=== PATIENT | female | born 1935 | race Caucasian/White ===

== ENCOUNTER 2016-04-24 13:09 | Inpatient (IN) | payer OTHER, MEDICARE ==
[2016-04-24] MEDS ORDERED: NS 2,000 ML IV ONE (14:14)
[2016-04-24 14:28] LABS: % IMMATURE GRANULYOCYTES 0.6 % (0.0-1.1); ABSOLUTE IMMATURE GRANULOCYTES 0.05 10^3/uL (0.00-0.10); ADD DIFF? NO; ADD MORPH? NO; ADD SCAN? NO; ATYPICAL LYMPHOCYTE FLAG 40 (0-99); FRAGMENT RBC FLAG 0 (0-99); HEMATOCRIT 38.9 % (38.0-47.0); HEMOGLOBIN 13.3 g/dL (12.6-16.3); LEFT SHIFT FLG 10 (0-99); LIPEMIA HEMOLYSIS FLAG 90 (0-99); MEAN CELL HEMOGLOBIN 31.7 pg (27.9-34.1); MEAN CELL HEMOGLOBIN CONCENTR. 34.2 g/dL (32.4-36.7); MEAN CELL VOLUME 92.8 fL (81.5-99.8); MEAN PLATELET VOLUME 9.6 fL (8.7-11.7); PLATELET CLUMPS FLAG 30 (0-99); PLATELET COUNT 295 10^3/uL (150-400); RED BLOOD CELL COUNT 4.19 10^6/uL (4.18-5.33); RED CELL DISTRIBUTION WIDTH 13.2 % (11.5-15.2)
[2016-04-24 14:34] LABS: ANION GAP 15 mEq/L (8-16); CALCIUM 9.1 mg/dL (8.5-10.4); CARBON DIOXIDE 23 mEq/l (22-31); CHLORIDE 99 mEq/L (97-110); CREATININE 0.6 mg/dL (0.6-1.0); GLOMERULAR FILTRATION RATE > 60; GLUCOSE 239 mg/dL (70-100); POTASSIUM 4.7 mEq/L (3.5-5.2); SODIUM 137 mEq/L (134-144)
--- NOTE | 2016-04-24 14:34 | EDPHY ---
H & P Time Seen by Provider: 04/24/16 14:33 HPI/ROS: Portions of this note were transcribed by a medical field representative. I personally performed the history, physical exam, and medical decision-making; and confirmed the accuracy of the information in the transcribed note. CHIEF COMPLAINT: I fell and could not get up; weakness HISTORY OF PRESENT ILLNESS: History is not patient and son. She has been having some back pain for the last week and half is some chronic issues with her right knee and right foot with an old tendon injury. She was doing well enough to go to [place] and have dinner and go to the [employer] on April 19. The day after Noe she started having a cough and increasing shortness of breath. She went to urgent care yesterday and was discharged with primary care follow-up and no change in her medications. Today she was feeling very weak she tried to get up and slumped onto the floor. She was so weak that she was unable to get up. She had diarrhea and continues to have cough weakness and fever. No urinary symptoms and only mildly short of breath. No injuries in the fall. REVIEW OF SYSTEMS: Eye: no change in vision ENT: no sore throat Cardiac: no chest pain or syncope Pulmonary: No hemoptysis. Abdomen: No vomiting or diarrhea. Musculoskeletal: Back pain as mentioned above. Skin: no rash Neuro: no headache Constitutional: HPI : no urinary symptoms A comprehensive 10 point review of systems is otherwise negative aside from elements mentioned in the history of present illness. PAST MEDICAL HISTORY: Includes hysterectomy and cholecystectomy, diabetes and hypertension, COPD. Social history: Former smoker, PCP Scarlett Hebert at [facility]. General Appearance: Alert and conversant, cooperative. Eyes: No scleral icterus. ENT, Mouth: Dry mucous membranes Respiratory: Bilateral rhonchi and expiratory wheezing, mildly tachypneic. Cardiovascular: Regular rate and rhythm. Gastrointestinal: Abdomen is soft and non tender. Neurological: Alert and oriented x3. Normally conversant. Face symmetric, able to move and have normal sensation in all extremities. Skin: Warm and dry, no rashes. No decubitus. Musculoskeletal: No peripheral edema and no joint swelling. Neck is supple without meningeal signs. No cervical thoracic or lumbar spine midline tenderness. Psychiatric: Not agitated. Emergency Department course/MDM: Patient presents with fever and probable infection. Plan for urinalysis and chest x-ray, DuoNeb and supplemental oxygen. Initial oxygen saturation per her nurse is 84% on room air. 125 mg IV Solu-Medrol. Patient does not meet sepsis criteria. Tachycardic, fever but no elevated WBC or tachypnea. 1510: I spoke with the radiologist, Dr. Baker and he interprets chest xray as left lower lobe pneumonia. I have ordered Levaquin 750 mg IV as the patient has penicillin and cephalosporin allergy, at this time. Patient will be admitted. I discussed the results with patient and her son. 1533: Patient is Flu positive. I have ordered 75 mg TamiFlu at this time. 1535: I spoke with the hospitalist, Dr. Porfirio Dawkins. She will admit the patient to Med/Surg for left lower lung pneumonia and influenza. 1615: Repeat venous lactic acid is measured at 1.4. Oxygen saturation is in the mid 90s on nasal cannula, and that was applied immediately on arrival for hypoxemia. Smoking Status: Former smoker Constitutional: Initial Vital Signs Temperature (C) 38.9 C H 04/24/16 13:51 Heart Rate 79 04/24/16 13:51 Respiratory Rate 18 04/24/16 13:51 Blood Pressure 124/92 H 04/24/16 13:51 O2 Sat (%) 95 04/24/16 13:51 O2 Delivery Mode Nasal Cannula O2 (L/minute) 5 Allergies/Adverse Reactions: aspirin Allergy (Verified 08/19/14 11:18) cephalexin monohydrate [From Keflex] Allergy (Verified 08/19/14 11:19) Penicillins Allergy (Verified 08/19/14 11:18) Sulfa (Sulfonamide Antibiotics) Allergy (Verified 08/19/14 11:19) Home Medications: Medication Instructions Recorded Atorvastatin Calcium [Lipitor 10 10 mg PO DAILY 08/19/14 mg (*)] Fluticasone/Salmeter 250/50Mcg 1 puffs IH BID 08/19/14 [Advair 250/50 (*)] Insulin Lispro [humALOG LISPRO] 4 unit SC TIDMEAL 08/19/14 Calcium Carbonate [Oyster Shell 500 mg PO DAILY 05/29/15 Calcium 500 mg (*)] Cholecalciferol Vit D3 [Vitamin D3 1,000 units PO BID 05/29/15 (*)] Clopidogrel Bisulfate [Plavix (*)] 75 mg PO DAILY 05/29/15 Fluticasone Nasal [Flonase Nasal 2 spray NASAL DAILY 05/29/15 [place]] Gabapentin [Neurontin 300 MG (*)] 300 mg PO HS 05/29/15 Insulin Glargine [Lantus 100 4 units SC HS 05/29/15 UNITS/ML (*)] Lisinopril/Hctz 10/12.5 mg 1 ea PO DAILY 05/29/15 [Zestoretic/Prinzide 10/12.5MG (*)] [place]-3 Fatty Acids [Fish Oil 1000 1,000 mg PO DAILY 05/29/15 mg (*)] Acetaminophen [Tylenol ES 500 mg 500 mg PO DAILY PRN 04/24/16 (*)] Albuterol Hfa Anes Only [Proair 2 puffs IH QID 04/24/16 Hfa Icu (*)] Ascorbic Acid [Vitamin C 250 mg 500 mg PO DAILY 04/24/16 (*)] Fexofenadine HCl [Deja Allergy] 180 mg PO DAILY 04/24/16 predniSONE 5 mg PO Q48H 04/24/16 traMADol [Ultram 50 mg (*)] 50 mg PO DAILY@17,22 04/24/16 Medical Decision Making - Diagnostics EKG Interpretation: The 12 lead EKG was interpreted by myself. Sinus rhythm, rate 69 with multiple atrial premature complexes and right bundle branch block. See hard copy and/ or "tracemaster" electronic copy for interpretation. Imaging: X-ray: Chest x-ray was obtained. I viewed the images myself on the PACS system. My interpretation of the images is: Left lower lobe infiltrate. The radiologist interpretation is agreeable with left lower lung pneumonia, Dr. Baker. I discussed the x-ray findings with the patient. X-ray: lumbar spine x-ray was obtained. I viewed the images myself on the PACS system. My interpretation of the images is: L4 on L5 spondylo listhesis with scoliosis, no different than previous lumbar x-ray, decreased disc space T12-L1 , worsening from previous x-ray. The radiologist interpretation is pending at this time. I discussed the x-ray findings with the patient. Differential Diagnosis: Differential diagnosis considered for weakness including but not limited to pneumonia, UTI, electrolyte abnormality, acute coronary syndrome, dehydration, and infectious causes. Critical Care Time: Critical care time spent by me, Dr. Briscoe, exclusively with the care of this patient was 35 minutes, exclusive of PA or LABORER [employer]ELINE time and exclusive of separate procedures. The organ system at risk was infectious, pulmonary and I ordered supplemental oxygen, IV fluids, antibiotics to include Levaquin 750 mg IV, oral antiviral medication, discussion with hospitalist physician; to stabilize the patient and prevent worsening of the patient's condition. - Data Points Laboratory Results: Laboratory Results 04/24/16 13:35 04/24/16 13:35 04/24/16 04/24/16 04/24/16 15:18 14:55 14:37 WBC RBC Hgb Hct MCV MCH MCHC RDW Plt Count MPV Neut % (Auto) Lymph % (Auto) [place] % (Auto) Eos % (Auto) Baso % (Auto) Nucleat RBC Rel Count Absolute Neuts (auto) Absolute Lymphs (auto) Absolute Monos (auto) Absolute Eos (auto) Absolute Basos (auto) Absolute Nucleated RBC Immature Gran % Immature Gran # PT INR APTT VBG Lactic Acid 3.1 H mmol/L (0.7-2.1) Sodium Potassium Chloride Carbon Dioxide Anion Gap BUN Creatinine Estimated GFR Glucose Calcium Total Bilirubin 1.4 mg/dL (0.1-1.4) Creatine Kinase 468 H IU/L (0-156) CK-MB (CK-2) Fraction 1.67 ng/mL (0-4.55) CK-MB (CK-2) % 0.3 % (0.0-4.0) Creatine Kinase Interp NEGATIVE (NEGATIVE) Specimen Hemolysis 317 Urine Color YELLOW Urine Appearance CLEAR Urine pH 5.0 (5.0-7.5) Ur Specific [place] 1.014 (1.002-1.030) Urine Protein 1+ H (NEGATIVE) Urine Ketones 1+ H (NEGATIVE) Urine Blood 2+ H (NEGATIVE) Urine Nitrate POSITIVE H (NEGATIVE) Urine Bilirubin NEGATIVE (NEGATIVE) Urine Urobilinogen NEGATIVE EU (0.2-1.0) Ur Leukocyte Esterase NEGATIVE (NEGATIVE) Urine RBC 1-3 /hpf (0-3) Urine WBC 1-3 /hpf (0-3) Ur Epithelial Cells TRACE /lpf (NONE-1+) Urine Bacteria TRACE H /hpf (NONE SEEN) Urine Mucus TRACE /lpf (NONE-1+) Ur Culture Indicated? INDICATED H (NI) Urine Glucose 3+ H (NEGATIVE) Influenza Typ A,B (DFA) POSITIVE FOR FLU A H (NEGATIVE) 04/24/16 13:35 WBC 8.76 10^3/uL (3.80-9.50) RBC 4.19 10^6/uL (4.18-5.33) Hgb 13.3 g/dL (12.6-16.3) Hct 38.9 % (38.0-47.0) MCV 92.8 fL (81.5-99.8) MCH 31.7 pg (27.9-34.1) MCHC 34.2 g/dL (32.4-36.7) RDW 13.2 % (11.5-15.2) Plt Count 295 10^3/uL (150-400) MPV 9.6 fL (8.7-11.7) Neut % (Auto) 84.6 H % (39.3-74.2) Lymph % (Auto) 8.9 L % (15.0-45.0) [place] % (Auto) 5.5 % (4.5-13.0) Eos % (Auto) 0.1 L % (0.6-7.6) Baso % (Auto) 0.3 % (0.3-1.7) Nucleat RBC Rel Count 0.0 % (0.0-0.2) Absolute Neuts (auto) 7.41 H 10^3/uL (1.70-6.50) Absolute Lymphs (auto) 0.78 L 10^3/uL (1.00-3.00) Absolute Monos (auto) 0.48 10^3/uL (0.30-0.80) Absolute Eos (auto) 0.01 L 10^3/uL (0.03-0.40) Absolute Basos (auto) 0.03 10^3/uL (0.02-0.10) Absolute Nucleated RBC 0.00 10^3/uL (0-0.01) Immature Gran % 0.6 % (0.0-1.1) Immature Gran # 0.05 10^3/uL (0.00-0.10) PT 14.1 SEC (12.0-15.0) INR 1.10 (0.83-1.16) APTT 23.7 SEC (23.0-38.0) VBG Lactic Acid Sodium 137 mEq/L (134-144) Potassium 4.7 mEq/L (3.5-5.2) Chloride 99 mEq/L (97-110) Carbon Dioxide 23 mEq/l (22-31) Anion Gap 15 mEq/L (8-16) BUN 15 mg/dL (7-23) Creatinine 0.6 mg/dL (0.6-1.0) Estimated GFR > 60 Glucose 239 H mg/dL (70-100) Calcium 9.1 mg/dL (8.5-10.4) Total Bilirubin Creatine Kinase CK-MB (CK-2) Fraction CK-MB (CK-2) % Creatine Kinase Interp Specimen Hemolysis Urine Color Urine Appearance Urine pH Ur Specific [place] Urine Protein Urine Ketones Urine Blood Urine Nitrate Urine Bilirubin Urine Urobilinogen Ur Leukocyte Esterase Urine RBC Urine WBC Ur Epithelial Cells Urine Bacteria Urine Mucus Ur Culture Indicated? Urine Glucose Influenza Typ A,B (DFA) Medications Given: Discontinued Medications Albuterol/Ipratropium (Duoneb) 3 ml IH EDNOW ONE Stop: 04/24/16 14:48 Last Admin: 04/24/16 15:50 Dose: 3 ml Sodium Chloride (Ns) 2,000 mls @ 0 mls/hr IV ONCE ONE PRN Reason: Wide Open Stop: 04/24/16 14:15 Last Admin: 04/24/16 14:20 Dose: 2,000 mls Levofloxacin/Dextrose (Levaquin 750 Mg (Premix)) 150 mls @ 100 mls/hr IV EDNOW ONE PRN Reason: Protocol Stop: 04/24/16 16:38 Last Admin: 04/24/16 15:50 Dose: 150 mls Methylprednisolone Sodium Succinate (Solu-Medrol) 125 mg IVP EDNOW ONE Stop: 04/24/16 15:10 Last Admin: 04/24/16 15:51 Dose: 125 mg Oseltamivir Phosphate (Tamiflu) 75 mg PO EDNOW ONE Stop: 04/24/16 15:36 Last Admin: 04/24/16 15:51 Dose: 75 mg Departure - Departure Disposition: [facility] Acute Clinical Impression: Influenza Pneumonia Qualifiers: Pneumonia type: due to unspecified organism Laterality: left Lung location: lower lobe of lung Qualifier Code: (J18.1) Lobar pneumonia, unspecified organism Condition: Serious Report Scribed for: Carlos Briscoe Report Scribed by: Dulce Lopez Date of Report: 04/24/16 Time of Report: 14:50
[2016-04-24] MEDS ORDERED: IPRATROPIUM/ALBUTEROL 3 ML DEYVIAL IH ONE (14:47)
[2016-04-24 15:04] LABS: INR 1.1 (0.83-1.16); PROTIME(PATIENT) 14.1 SEC (12.0-15.0)
[2016-04-24 15:05] LABS: APTT 23.7 SEC (23.0-38.0)
[2016-04-24 15:08] LABS: BILIRUBIN,TOTAL 1.4 mg/dL (0.1-1.4)
[2016-04-24] MEDS ORDERED: methylPREDNISolone SOD SUCC 125 MG/2 ML VIAL IVP ONE (15:09)
[2016-04-24 15:14] LABS: SPECIMEN HEMOLYSIS 317
[2016-04-24 15:26] LABS: COLOR YELLOW; LEUKOCYTE ESTERASE,URINE NEGATIVE (NEGATIVE); NITRITE,URINE POSITIVE (NEGATIVE)
--- NOTE | 2016-04-24 15:32 | CPEKG ---
Heart Rate: 69 RR Interval: 870 P-R Interval: 128 QRSD Interval: 132 QT Interval: 400 QTC Interval: 429 P [place]: 80 QRS [place]: 62 T Wave [place]: 1 EKG Severity - ABNORMAL ECG - EKG Impression: SINUS RHYTHM EKG Impression: MULTIPLE ATRIAL PREMATURE COMPLEXES EKG Impression: RIGHT BUNDLE BRANCH BLOCK Electronically Signed By: Carlos Briscoe 24-Apr-2016 15:44:49
[2016-04-24] MEDS ORDERED: OSELTAMIVIR PHOSPHATE 75 MG CAP PO ONE (15:35)
--- NOTE | 2016-04-24 15:41 | DX ---
Chest 2 views - April 24, 2016, at 1436 hours History: Cough, fever, dyspnea. Comparison: April 23, 2016. Findings: There is a new alveolar opacity in the left lower lobe, consistent with pneumonia. Linear scarring in the lingula. Borderline heart size. No pneumothorax. Impression: Left lower lobe pneumonia. Findings and recommendations discussed with Emergency Department physician, Dr. Carlos Briscoe. Final report concurs with initial preliminary interpretation.
[2016-04-24 15:53] LABS: CK-MB INTERPRETATION NEGATIVE (NEGATIVE); CREATINE KINASE-MB FRACTION 1.67 ng/mL (0-4.55)
[2016-04-24] MEDS ORDERED: PROMETHAZINE HCL 25 MG/ML VIAL IVP PRN (16:14)
[2016-04-24] MEDS ORDERED: ONDANSETRON DISINTEGRATING 4 MG TAB PO PRN (16:14)
[2016-04-24] MEDS ORDERED: ALBUTEROL 3 ML DEYVIAL IH PRN (16:14)
[2016-04-24] MEDS ORDERED: ONDANSETRON 4 MG/2 ML VIAL IVP PRN (16:14)
[2016-04-24] MEDS ORDERED: oxyCODONE IR 5 MG TAB PO PRN (16:14)
--- NOTE | 2016-04-24 16:31 | PDGENHP ---
History and Physical - Chief Complaint fever/sob - History of Present Illness 80 yo F with PMH of RAD/COPD, DM and CAD presenting with 2 days of fever, chills , sob and generalized aches and pains. She feels overall slowed down and weak as well. Today, she felt so weak that she essentially slumped to the floor and was unable to get herself back up. At that point she decided to come to the ER. She has been having worse upper back and neck pain as well. She has some chronic knee and foot pain that is stable. She has not been around anyone sick that she knows of. She has not had similar sxs in the past. History Information - Allergies/Home Medication List Allergies/Adverse Reactions: aspirin Allergy (Verified 08/19/14 11:18) cephalexin monohydrate [From Keflex] Allergy (Verified 08/19/14 11:19) Penicillins Allergy (Verified 08/19/14 11:18) Sulfa (Sulfonamide Antibiotics) Allergy (Verified 08/19/14 11:19) Home Medications: Atorvastatin Calcium [Lipitor 10 mg (*)] 10 mg PO DAILY 08/19/14 [Last Taken ] Fluticasone/Salmeter 250/50Mcg [Advair 250/50 (*)] 1 puffs IH BID 08/19/14 [ Last Taken 04/23/16] Insulin Lispro [humALOG LISPRO] 4 unit SC TIDMEAL 08/19/14 [Last Taken 04/23/16] Calcium Carbonate [Oyster Shell Calcium 500 mg (*)] 500 mg PO DAILY 05/29/15 [ Last Taken 04/23/16] Cholecalciferol Vit D3 [Vitamin D3 (*)] 1,000 units PO BID 05/29/15 [Last Taken 04/23/16] Clopidogrel Bisulfate [Plavix (*)] 75 mg PO DAILY 05/29/15 [Last Taken 04/23/16] Fluticasone Nasal [Flonase Nasal [place]] 2 spray NASAL DAILY 05/29/15 [Last Taken 04/23/16] Gabapentin [Neurontin 300 MG (*)] 300 mg PO HS 05/29/15 [Last Taken 04/23/16] Insulin Glargine [Lantus 100 UNITS/ML (*)] 4 units SC HS 05/29/15 [Last Taken ] Lisinopril/Hctz 10/12.5 mg [Zestoretic/Prinzide 10/12.5MG (*)] 1 ea PO DAILY 05/13 [Last Taken 04/23/16] [place]-3 Fatty Acids [Fish Oil 1000 mg (*)] 1,000 mg PO DAILY 05/29/15 [Last Taken 04/23/16] Acetaminophen [Tylenol ES 500 mg (*)] 500 mg PO DAILY PRN 04/24/16 [Last Taken 04/23/16 1000mg] Albuterol Hfa Anes Only [Proair Hfa Icu (*)] 2 puffs IH QID 04/24/16 [Last Taken Unknown] Ascorbic Acid [Vitamin C 250 mg (*)] 500 mg PO DAILY 04/24/16 [Last Taken ] Fexofenadine HCl [Deja Allergy] 180 mg PO DAILY 04/24/16 [Last Taken 04/23/16 ] predniSONE 5 mg PO Q48H 04/24/16 [Last Taken Unknown] traMADol [Ultram 50 mg (*)] 50 mg PO DAILY@17,22 04/24/16 [Last Taken Unknown] I have personally reviewed and updated: family history, medical history, social history, surgical history - Past Medical History asthma, coronary artery disease, COPD, diabetes type 2, hypertension - Surgical History Reports: cholecystectomy, hysterectomy - Family History Positive for: non-pertinent - Social History Smoking Status: Former smoker Alcohol Use: None Drug Use: None Additional social history: lives independently, son lives nearby and accompanies her here today Review of Systems ROS: 10pt was reviewed & negative except for what was stated in HPI & below Physical Exam Temp Pulse Resp BP Pulse Ox 38.9 C H 84 22 H 130/85 H 94 04/24/16 13:51 04/24/16 16:00 04/24/16 16:00 04/24/16 16:00 04/24/16 16:00 O2 (L/minute) 5 Constitutional: appears nourished, uncomfortable Eyes: PERRL, scleral injection Ears, Nose, Mouth, Throat: moist mucous membranes, hearing normal Cardiovascular: regular rate and rhythym, systolic murmur, No edema Respiratory: reduced air movement, inspiratory crackles, respiratory distress Gastrointestinal: normoactive bowel sounds, soft, non-tender abdomen Skin: warm, normal color Musculoskeletal: full muscle strength Neurologic: AAOx3, sensation intact bilaterally Lab Data & Imaging Review 04/24/16 13:35 04/24/16 13:35 WBC 8.76 10^3/uL (3.80-9.50) 04/24/16 13:35 RBC 4.19 10^6/uL (4.18-5.33) 04/24/16 13:35 Hgb 13.3 g/dL (12.6-16.3) 04/24/16 13:35 Hct 38.9 % (38.0-47.0) 04/24/16 13:35 MCV 92.8 fL (81.5-99.8) 04/24/16 13:35 MCH 31.7 pg (27.9-34.1) 04/24/16 13:35 MCHC 34.2 g/dL (32.4-36.7) 04/24/16 13:35 RDW 13.2 % (11.5-15.2) 04/24/16 13:35 Plt Count 295 10^3/uL (150-400) 04/24/16 13:35 MPV 9.6 fL (8.7-11.7) 04/24/16 13:35 Neut % (Auto) 84.6 % (39.3-74.2) H 04/24/16 13:35 Lymph % (Auto) 8.9 % (15.0-45.0) L 04/24/16 13:35 [place] % (Auto) 5.5 % (4.5-13.0) 04/24/16 13:35 Eos % (Auto) 0.1 % (0.6-7.6) L 04/24/16 13:35 Baso % (Auto) 0.3 % (0.3-1.7) 04/24/16 13:35 Nucleat RBC Rel Count 0.0 % (0.0-0.2) 04/24/16 13:35 Absolute Neuts (auto) 7.41 10^3/uL (1.70-6.50) H 04/24/16 13:35 Absolute Lymphs (auto) 0.78 10^3/uL (1.00-3.00) L 04/24/16 13:35 Absolute Monos (auto) 0.48 10^3/uL (0.30-0.80) 04/24/16 13:35 Absolute Eos (auto) 0.01 10^3/uL (0.03-0.40) L 04/24/16 13:35 Absolute Basos (auto) 0.03 10^3/uL (0.02-0.10) 04/24/16 13:35 Absolute Nucleated RBC 0.00 10^3/uL (0-0.01) 04/24/16 13:35 Immature Gran % 0.6 % (0.0-1.1) 04/24/16 13:35 Immature Gran # 0.05 10^3/uL (0.00-0.10) 04/24/16 13:35 PT 14.1 SEC (12.0-15.0) 04/24/16 13:35 INR 1.10 (0.83-1.16) 04/24/16 13:35 APTT 23.7 SEC (23.0-38.0) 04/24/16 13:35 VBG Lactic Acid 1.4 mmol/L (0.7-2.1) D 04/24/16 15:55 Sodium 137 mEq/L (134-144) 04/24/16 13:35 Potassium 4.7 mEq/L (3.5-5.2) 04/24/16 13:35 Chloride 99 mEq/L (97-110) 04/24/16 13:35 Carbon Dioxide 23 mEq/l (22-31) 04/24/16 13:35 Anion Gap 15 mEq/L (8-16) 04/24/16 13:35 BUN 15 mg/dL (7-23) 04/24/16 13:35 Creatinine 0.6 mg/dL (0.6-1.0) 04/24/16 13:35 Estimated GFR > 60 04/24/16 13:35 Glucose 239 mg/dL (70-100) H 04/24/16 13:35 Calcium 9.1 mg/dL (8.5-10.4) 04/24/16 13:35 Total Bilirubin 1.4 mg/dL (0.1-1.4) 04/24/16 14:37 Creatine Kinase 468 IU/L (0-156) H 04/24/16 14:37 CK-MB (CK-2) Fraction 1.67 ng/mL (0-4.55) 04/24/16 14:37 CK-MB (CK-2) % 0.3 % (0.0-4.0) 04/24/16 14:37 Creatine Kinase Interp NEGATIVE (NEGATIVE) 04/24/16 14:37 Specimen Hemolysis 317 04/24/16 14:37 Urine Color YELLOW 04/24/16 15:18 Urine Appearance CLEAR 04/24/16 15:18 Urine pH 5.0 (5.0-7.5) 04/24/16 15:18 Ur Specific [place] 1.014 (1.002-1.030) 04/24/16 15:18 Urine Protein 1+ (NEGATIVE) H 04/24/16 15:18 Urine Ketones 1+ (NEGATIVE) H 04/24/16 15:18 Urine Blood 2+ (NEGATIVE) H 04/24/16 15:18 Urine Nitrate POSITIVE (NEGATIVE) H 04/24/16 15:18 Urine Bilirubin NEGATIVE (NEGATIVE) 04/24/16 15:18 Urine Urobilinogen NEGATIVE EU (0.2-1.0) 04/24/16 15:18 Ur Leukocyte Esterase NEGATIVE (NEGATIVE) 04/24/16 15:18 Urine Glucose 3+ (NEGATIVE) H 04/24/16 15:18 Influenza Typ A,B (DFA) POSITIVE FOR FLU A (NEGATIVE) H 04/24/16 14:55 Visualized and Interpreted Chest x-ray results: Yes Chest X-Ray results: infiltrate (LLL) Visualized and Interpreted EKG results: Yes EKG Interpretation: Positive for: normal sinsus rhythm, right bundle branch block EKG additional interpertation: no change from prior Assessment & Plan Assessment: 80 yo F with hx of RAD/COPD presenting with influenza A pna # influenza A: started on tamiflu, has e/o LLL infiltrate as well as next # LLL PNA: in setting of influenza with likely secondary bacterial infection. Started on levofloxacin. Cultures pending. # chronic rad/copd with acute exacerbation: patient chronically on prednisone-- placed on increased dose of 40mg daily, duonebs/albutertol nebs, IS, abx as above. # acute on chronic hypoxic respiratory failure: at baseline on o2 at night (2L) and intermittently on 1L during the day, currently requiring 5L of o2 to maintain o2 sats in the low 90s. Secondary to above. # sepsis: febrile with tachypnea but normal wbc count and diff. No evidence of HD instability or end organ dysfunction. Abx as above, cultures pending # DM2: will continue op regimen, ac/hs BS and SSI # dispo: IP status, will need > 48 hours stay for eval/mgmt of above # code status: DNR, son MDPOA, paperwork to be scanned into chart, reviewed with patient and her son Patient new to my care. Old records reviewed and summarized as above. Care plan reviewed with ER doctor. Further hx obtained from patients son present at bedside.
[2016-04-24] MEDS ORDERED: D50W 25 GM/50 ML SYR IVP PRN (16:47)
[2016-04-24 17:01] LABS: BACTERIA TRACE /hpf (NONE SEEN); MUCUS TRACE /lpf (NONE-1+)
--- NOTE | 2016-04-24 17:03 | DX ---
Lumbar spine AP and lateral 1506 hours. History: Back pain for 3 weeks. Findings: Comparison to December 04, 2007 and November 13, 2007. There is mild increase in moderate dextroscoliosis upper lumbar spine with the apex at L1. There is a ssociated moderate disk space narrowing along the inner aspect of the scoliosis on the left at T11-T1 2, T12-T1, and L1 to as well as at L2-L3. This has progressed. There is stable about 12 mm of anterio r subluxation of L4 and L5. No new subluxations are appreciated. There are no lytic or sclerotic osse ous lesions appreciated. Impression: 1. Mild increase in moderate dextroscoliosis upper lumbar spine with associated progression of disk s pace narrowing along the inner aspect of the curvature along the left side of T11-T12, T12-L1, L1-L2, and L2-L3. 2. Stable anterior subluxation of L4 and L5.
[2016-04-24] MEDS: OSELTAMIVIR PHOSPHATE 75 MG CAP PO SCH (18:05)
[2016-04-24] MEDS: INSULIN LISPRO 100 UNIT/ML SC SCH ×3 (18:05→18:10)
[2016-04-24] MEDS: traMADol 50 MG TAB PO SCH ×2 (18:05→22:40)
[2016-04-24] MEDS: predniSONE 20 MG TAB PO SCH (18:17)
[2016-04-24] MEDS ORDERED: INSULIN GLARGINE 100 UNITS/ML SYRINGE SC SCH (21:00)
[2016-04-24] MEDS: IPRATROPIUM/ALBUTEROL 3 ML DEYVIAL IH SCH (22:13)
[2016-04-24] MEDS: FLUTICASONE/SALMETER 250/50MCG DISKUS IH SCH (22:16)
[2016-04-24] MEDS: CHOLECALCIFEROL VIT D3 1,000 UNITS TAB PO SCH (22:40)
[2016-04-24] MEDS: GABAPENTIN 300 MG CAP PO SCH (22:40)
[2016-04-25] MEDS: IPRATROPIUM/ALBUTEROL 3 ML DEYVIAL IH SCH ×4 (05:09→20:54)
[2016-04-25] MEDS ORDERED: methylPREDNISolone SOD SUCC 125 MG/2 ML VIAL IVP ONE (06:00)
[2016-04-25 06:28] LABS: % IMMATURE GRANULYOCYTES 0.5 % (0.0-1.1); ABSOLUTE IMMATURE GRANULOCYTES 0.08 10^3/uL (0.00-0.10); ADD DIFF? NO; ADD MORPH? NO; ADD SCAN? NO; ATYPICAL LYMPHOCYTE FLAG 0 (0-99); FRAGMENT RBC FLAG 0 (0-99); HEMATOCRIT 33.8 % (38.0-47.0); HEMOGLOBIN 11.5 g/dL (12.6-16.3); LEFT SHIFT FLG 80 (0-99); LIPEMIA HEMOLYSIS FLAG 90 (0-99); MEAN CELL HEMOGLOBIN 31.3 pg (27.9-34.1); MEAN CELL VOLUME 92.1 fL (81.5-99.8); MEAN PLATELET VOLUME 9.8 fL (8.7-11.7); PLATELET CLUMPS FLAG 0 (0-99); PLATELET COUNT 232 10^3/uL (150-400); RED BLOOD CELL COUNT 3.67 10^6/uL (4.18-5.33); RED CELL DISTRIBUTION WIDTH 13.2 % (11.5-15.2)
[2016-04-25 06:41] LABS: ANION GAP 15 mEq/L (8-16); CALCIUM 7.8 mg/dL (8.5-10.4); CARBON DIOXIDE 22 mEq/l (22-31); CHLORIDE 104 mEq/L (97-110); CREATININE 0.6 mg/dL (0.6-1.0); GLOMERULAR FILTRATION RATE > 60; GLUCOSE 277 mg/dL (70-100); POTASSIUM 4.2 mEq/L (3.5-5.2); SODIUM 141 mEq/L (134-144)
--- NOTE | 2016-04-25 08:02 | DX ---
Portable Chest April 25, 2016 0632 hours Clinical Indications: Evaluate for worsening pneumonia. Comparison: April 24, 2016. Findings: The right costophrenic angle appears more blunted today than one day prior suggesting basil ar atelectasis or a small effusion. Retrocardiac infiltrate is stable. Heart size is upper limits of normal. Atherosclerotic disease of the aorta is noted. Moderate degenerative changes of the spine are present. Impression: 1. Stable retrocardiac infiltrate. 2. New atelectatic change or effusion at the right base.
[2016-04-25] MEDS ORDERED: NON-FORMULARY NEW DRUG (Fexofenadine Hcl [Allegra Allergy] 180 MG) PO SCH (09:00)
[2016-04-25] MEDS: INSULIN LISPRO 100 UNIT/ML SC SCH ×5 (09:37→18:05)
[2016-04-25] MEDS: OSELTAMIVIR PHOSPHATE 75 MG CAP PO SCH ×2 (09:50→18:06)
[2016-04-25] MEDS: predniSONE 20 MG TAB PO SCH (09:50)
[2016-04-25] MEDS: ENOXAPARIN 40 MG/0.4 ML SYR SC SCH (09:56)
[2016-04-25] MEDS: ATORVASTATIN CALCIUM 10 MG TAB PO SCH (09:56)
[2016-04-25] MEDS: CLOPIDOGREL BISULFATE 75 MG TAB PO SCH (09:56)
[2016-04-25] MEDS: ACETAMINOPHEN 325 MG TAB PO PRN ×2 (10:01→18:10)
[2016-04-25] MEDS: FLUTICASONE/SALMETER 250/50MCG DISKUS IH SCH ×3 (11:18→20:57)
[2016-04-25] MEDS: FLUTICASONE NASAL 120 SPRAYS/16 GM MDI EACHNARE SCH (11:59)
[2016-04-25] MEDS ORDERED: INSULIN LISPRO 100 UNIT/ML SC SCH ×2 (13:17→13:20)
[2016-04-25] MEDS ORDERED: INSULIN GLARGINE 100 UNITS/ML SYRINGE SC SCH (13:17)
--- NOTE | 2016-04-25 14:16 | HOSPPROG ---
Hospitalist Progress Note Assessment/Plan: Acute hypoxemic respiratory failure in setting of PNA with positive influenza. Also has h/o COPD and RAD. O2 requirement up to 15 LPM this am, down to 12 LPM this afternoon. -cont steroids, nebs, O2 -Levaquin for PNA -cont tamiflu, droplet precautions DM - bg's quite elevated though likely secondary to IV solumedrol and now on oral prednisone -increase lantus / lispro doses DNR Subjective: pt feels a bit better. still SOB with some coughing. no fevers. Objective: Vital Signs Temp Pulse Resp BP Pulse Ox 36.8 C 84 18 107/57 L 93 04/25/16 11:22 04/25/16 11:22 04/25/16 11:22 04/25/16 11:22 04/25/16 11:22 Laboratory Results 04/25/16 04:43 04/24/16 04/25/16 04/26/16 05:59 05:59 05:59 Intake Total 2000 Output Total 20 Balance 1999 - PT 14.1 SEC (12.0-15.0) 04/24/16 13:35 INR 1.10 (0.83-1.16) 04/24/16 13:35 - Physical Exam Constitutional: no apparent distress Eyes: PERRL Ears, Nose, Mouth, Throat: moist mucous membranes Cardiovascular: regular rate and rhythym Respiratory: no respiratory distress, reduced air movement, expiratory wheeze Gastrointestinal: normoactive bowel sounds, soft, non-tender abdomen Skin: warm Neurologic: AAOx3 Psychiatric: interacting appropriately ICD10 Worksheet Patient Problems: Problems Problem Status Diagnosed Bronchitis Acute Chronic Disease [facility]/Transitional Care Acute Hypoxia Acute Influenza Acute Pneumonia Acute
[2016-04-25 14:19] LABS: GLUCOSE 374 mg/dL (70-100)
[2016-04-25] MEDS ORDERED: INSULIN REGULAR HUMAN 100 UNIT/ML ONE (14:50)
[2016-04-25] MEDS: ASCORBIC ACID 500 MG TAB PO SCH (15:04)
[2016-04-25] MEDS: CALCIUM CARBONATE 500 MG TAB PO SCH (15:04)
[2016-04-25] MEDS: CHOLECALCIFEROL VIT D3 1,000 UNITS TAB PO SCH ×2 (15:06→21:20)
[2016-04-25] MEDS: LISINOPRIL/HCTZ 10/12.5 MG 1 EA TAB PO SCH (15:06)
[2016-04-25] MEDS: CETIRIZINE 10 MG TAB PO SCH (15:06)
[2016-04-25] MEDS: OMEGA-3 FATTY ACIDS 1,000 MG CAP PO SCH (15:07)
[2016-04-25] MEDS: traMADol 50 MG TAB PO SCH ×2 (15:24→21:20)
[2016-04-25 15:29] LABS: HEMOGLOBIN A1C 8.8 % (4.0-6.0)
[2016-04-25] MEDS: GABAPENTIN 300 MG CAP PO SCH (21:20)
[2016-04-25] MEDS: INSULIN GLARGINE 100 UNITS/ML SYRINGE SC SCH (21:20)
[2016-04-26] MEDS: IPRATROPIUM/ALBUTEROL 3 ML DEYVIAL IH SCH ×4 (05:22→21:38)
[2016-04-26 06:01] LABS: % IMMATURE GRANULYOCYTES 0.9 % (0.0-1.1); ABSOLUTE IMMATURE GRANULOCYTES 0.16 10^3/uL (0.00-0.10); ADD DIFF? NO; ADD MORPH? NO; ADD SCAN? NO; ATYPICAL LYMPHOCYTE FLAG 0 (0-99); FRAGMENT RBC FLAG 0 (0-99); HEMATOCRIT 32.3 % (38.0-47.0); HEMOGLOBIN 10.9 g/dL (12.6-16.3); LEFT SHIFT FLG 40 (0-99); LIPEMIA HEMOLYSIS FLAG 80 (0-99); MEAN CELL HEMOGLOBIN 31.1 pg (27.9-34.1); MEAN CELL HEMOGLOBIN CONCENTR. 33.7 g/dL (32.4-36.7); MEAN CELL VOLUME 92.3 fL (81.5-99.8); MEAN PLATELET VOLUME 9.9 fL (8.7-11.7); PLATELET CLUMPS FLAG 0 (0-99); PLATELET COUNT 233 10^3/uL (150-400); RED CELL DISTRIBUTION WIDTH 13.3 % (11.5-15.2)
[2016-04-26 06:15] LABS: ANION GAP 10 mEq/L (8-16); CALCIUM 8.3 mg/dL (8.5-10.4); CARBON DIOXIDE 25 mEq/l (22-31); CHLORIDE 103 mEq/L (97-110); CREATININE 0.6 mg/dL (0.6-1.0); GLOMERULAR FILTRATION RATE > 60; GLUCOSE 267 mg/dL (70-100); POTASSIUM 4.6 mEq/L (3.5-5.2); SODIUM 138 mEq/L (134-144)
[2016-04-26] MEDS: ACETAMINOPHEN 500 MG TAB PO PRN ×2 (07:16→17:27)
[2016-04-26] MEDS: OSELTAMIVIR PHOSPHATE 75 MG CAP PO SCH ×2 (09:10→17:27)
[2016-04-26] MEDS: CALCIUM CARBONATE 500 MG TAB PO SCH (09:10)
[2016-04-26] MEDS: CHOLECALCIFEROL VIT D3 1,000 UNITS TAB PO SCH ×2 (09:10→20:46)
[2016-04-26] MEDS: CLOPIDOGREL BISULFATE 75 MG TAB PO SCH (09:10)
[2016-04-26] MEDS: predniSONE 20 MG TAB PO SCH (09:10)
[2016-04-26] MEDS: LISINOPRIL/HCTZ 10/12.5 MG 1 EA TAB PO SCH (09:10)
[2016-04-26] MEDS: CETIRIZINE 10 MG TAB PO SCH (09:11)
[2016-04-26] MEDS: OMEGA-3 FATTY ACIDS 1,000 MG CAP PO SCH (09:11)
[2016-04-26] MEDS: INSULIN LISPRO 100 UNIT/ML SC SCH ×6 (09:11→17:27)
[2016-04-26] MEDS: ASCORBIC ACID 500 MG TAB PO SCH (09:11)
[2016-04-26] MEDS: ATORVASTATIN CALCIUM 10 MG TAB PO SCH (09:11)
[2016-04-26] MEDS: ENOXAPARIN 40 MG/0.4 ML SYR SC SCH (09:11)
[2016-04-26] MEDS: FLUTICASONE NASAL 120 SPRAYS/16 GM MDI EACHNARE SCH (09:12)
[2016-04-26] MEDS: FLUTICASONE/SALMETER 250/50MCG DISKUS IH SCH ×2 (12:38→21:39)
--- NOTE | 2016-04-26 16:09 | HOSPPROG ---
Hospitalist Progress Note Assessment/Plan: Acute hypoxemic respiratory failure in setting of PNA with positive influenza. Also has h/o COPD and RAD contributing. O2 requirement up to 15 LPM yesterday am, down to 5 LPM this afternoon. -cont steroids, nebs, O2 -Levaquin for PNA -cont tamiflu, droplet precautions DM - bg's quite elevated likely secondary to IV solumedrol and now on oral prednisone -increase lantus / lispro doses DNR Subjective: Pt feels much better today. Still weak and some SOB, but moving better and breathing better. No fevers. Cough improving. No CP. Objective: Vital Signs Temp Pulse Resp BP Pulse Ox 36.6 C 70 16 120/57 L 94 04/26/16 15:00 04/26/16 15:00 04/26/16 15:00 04/26/16 15:00 04/26/16 15:00 Microbiology 04/24/16 16:58 Urine Culture - Final Urine,Clean Catch Escherichia Coli Laboratory Results 04/26/16 04:21 04/26/16 04:21 04/25/16 04/26/16 04/27/16 05:59 05:59 05:59 Intake Total 1999 690 Output Total 370 Balance 2000 320 PT 14.1 SEC (12.0-15.0) 04/24/16 13:35 INR 1.10 (0.83-1.16) 04/24/16 13:35 - Physical Exam Constitutional: no apparent distress Eyes: PERRL Ears, Nose, Mouth, Throat: moist mucous membranes Cardiovascular: regular rate and rhythym Respiratory: no respiratory distress, reduced air movement Gastrointestinal: normoactive bowel sounds, soft, non-tender abdomen Skin: warm Neurologic: AAOx3 Psychiatric: interacting appropriately ICD10 Worksheet Patient Problems: Problems Problem Status Diagnosed Bronchitis Acute Chronic Disease [facility]/Transitional Care Acute Hypoxia Acute Influenza Acute Pneumonia Acute
[2016-04-26] MEDS: traMADol 50 MG TAB PO SCH ×2 (17:27→20:46)
[2016-04-26] MEDS: GABAPENTIN 300 MG CAP PO SCH (20:47)
[2016-04-26] MEDS: INSULIN GLARGINE 100 UNITS/ML SYRINGE SC SCH (20:47)
[2016-04-27 05:18] LABS: % IMMATURE GRANULYOCYTES 0.5 % (0.0-1.1); ABSOLUTE IMMATURE GRANULOCYTES 0.06 10^3/uL (0.00-0.10); ADD DIFF? NO; ADD MORPH? NO; ADD SCAN? NO; ATYPICAL LYMPHOCYTE FLAG 50 (0-99); FRAGMENT RBC FLAG 0 (0-99); HEMATOCRIT 32.8 % (38.0-47.0); LEFT SHIFT FLG 10 (0-99); LIPEMIA HEMOLYSIS FLAG 80 (0-99); MEAN CELL HEMOGLOBIN 31.4 pg (27.9-34.1); MEAN CELL HEMOGLOBIN CONCENTR. 33.5 g/dL (32.4-36.7); MEAN CELL VOLUME 93.7 fL (81.5-99.8); PLATELET CLUMPS FLAG 0 (0-99); PLATELET COUNT 227 10^3/uL (150-400); RED CELL DISTRIBUTION WIDTH 13.5 % (11.5-15.2)
[2016-04-27] MEDS: IPRATROPIUM/ALBUTEROL 3 ML DEYVIAL IH SCH ×4 (05:58→20:48)
[2016-04-27 06:41] LABS: ANION GAP 9 mEq/L (8-16); CALCIUM 8.8 mg/dL (8.5-10.4); CARBON DIOXIDE 29 mEq/l (22-31); CHLORIDE 103 mEq/L (97-110); CREATININE 0.6 mg/dL (0.6-1.0); GLOMERULAR FILTRATION RATE > 60; GLUCOSE 135 mg/dL (70-100); POTASSIUM 4.4 mEq/L (3.5-5.2); SODIUM 141 mEq/L (134-144)
[2016-04-27] MEDS: INSULIN LISPRO 100 UNIT/ML SC SCH ×6 (09:33→18:57)
--- NOTE | 2016-04-27 10:18 | HOSPPROG ---
Hospitalist Progress Note Assessment/Plan: Acute hypoxemic respiratory failure in setting of PNA with positive influenza. Also has h/o COPD and RAD contributing. O2 requirement up to 15 LPM at admission, down to 5 LPM today. -cont steroids, nebs, O2 -add guaifenesin -Levaquin for PNA, day 08/02 -cont tamiflu, dose 10/05 -droplet precautions DM - bg's quite elevated initially, likely secondary to IV solumedrol and now on oral prednisone, day 07/31. -cont increased lantus / lispro doses. may need to decrease doses after steroid burst DNR Dispo - inpt, will need SNF rehab. CM involved. Subjective: Pt feels better every day. No fevers. Appetite improved. She is still quite weak, but walking better. Objective: Vital Signs Temp Pulse Resp BP Pulse Ox 36.6 C 66 18 105/58 L 93 04/27/16 08:00 04/27/16 08:00 04/27/16 08:00 04/27/16 08:00 04/27/16 08:00 Microbiology 04/24/16 16:58 Urine Culture - Final Urine,Clean Catch Escherichia Coli Laboratory Results 04/27/16 04:17 04/27/16 04:17 04/26/16 04/27/16 04/28/16 05:59 05:59 05:59 Intake Total 690 900 Output Total 370 Balance 320 900 PT 14.1 SEC (12.0-15.0) 04/24/16 13:35 INR 1.10 (0.83-1.16) 04/24/16 13:35 - Physical Exam Constitutional: no apparent distress Eyes: PERRL Ears, Nose, Mouth, Throat: moist mucous membranes Cardiovascular: regular rate and rhythym Respiratory: no respiratory distress, clear to auscultation Gastrointestinal: normoactive bowel sounds, soft, non-tender abdomen Skin: warm Neurologic: AAOx3 Psychiatric: interacting appropriately ICD10 Worksheet Patient Problems: Problems Problem Status Diagnosed Bronchitis Acute Chronic Disease [facility]/Transitional Care Acute Hypoxia Acute Influenza Acute Pneumonia Acute
[2016-04-27] MEDS: ATORVASTATIN CALCIUM 10 MG TAB PO SCH (10:22)
[2016-04-27] MEDS: OMEGA-3 FATTY ACIDS 1,000 MG CAP PO SCH (10:22)
[2016-04-27] MEDS: CETIRIZINE 10 MG TAB PO SCH (10:23)
[2016-04-27] MEDS: CLOPIDOGREL BISULFATE 75 MG TAB PO SCH (10:23)
[2016-04-27] MEDS: LISINOPRIL/HCTZ 10/12.5 MG 1 EA TAB PO SCH (10:23)
[2016-04-27] MEDS: predniSONE 20 MG TAB PO SCH (10:24)
[2016-04-27] MEDS: CHOLECALCIFEROL VIT D3 1,000 UNITS TAB PO SCH ×2 (10:24→21:04)
[2016-04-27] MEDS: ASCORBIC ACID 500 MG TAB PO SCH (10:24)
[2016-04-27] MEDS: CALCIUM CARBONATE 500 MG TAB PO SCH (10:24)
[2016-04-27] MEDS: ENOXAPARIN 40 MG/0.4 ML SYR SC SCH (10:26)
[2016-04-27] MEDS: FLUTICASONE NASAL 120 SPRAYS/16 GM MDI EACHNARE SCH (10:27)
[2016-04-27] MEDS: FLUTICASONE/SALMETER 250/50MCG DISKUS IH SCH ×2 (10:27→20:48)
[2016-04-27] MEDS: OSELTAMIVIR PHOSPHATE 75 MG CAP PO SCH ×2 (10:35→18:58)
[2016-04-27] MEDS: guaiFENesin 600 MG TAB.ER PO SCH ×2 (11:19→21:04)
[2016-04-27] MEDS: ACETAMINOPHEN 325 MG TAB PO PRN (16:33)
[2016-04-27] MEDS: traMADol 50 MG TAB PO SCH ×2 (18:05→21:04)
[2016-04-27] MEDS: GABAPENTIN 300 MG CAP PO SCH (21:05)
[2016-04-27] MEDS: INSULIN GLARGINE 100 UNITS/ML SYRINGE SC SCH (21:05)
[2016-04-28] MEDS: IPRATROPIUM/ALBUTEROL 3 ML DEYVIAL IH SCH ×4 (06:17→21:23)
[2016-04-28] MEDS: INSULIN LISPRO 100 UNIT/ML SC SCH ×6 (10:00→18:30)
[2016-04-28] MEDS: CHOLECALCIFEROL VIT D3 1,000 UNITS TAB PO SCH ×2 (10:12→20:58)
[2016-04-28] MEDS: CETIRIZINE 10 MG TAB PO SCH (10:13)
[2016-04-28] MEDS: OMEGA-3 FATTY ACIDS 1,000 MG CAP PO SCH (10:13)
[2016-04-28] MEDS: ASCORBIC ACID 500 MG TAB PO SCH (10:13)
[2016-04-28] MEDS: guaiFENesin 600 MG TAB.ER PO SCH ×2 (10:13→20:58)
[2016-04-28] MEDS: ATORVASTATIN CALCIUM 10 MG TAB PO SCH (10:13)
[2016-04-28] MEDS: CLOPIDOGREL BISULFATE 75 MG TAB PO SCH (10:14)
[2016-04-28] MEDS: LISINOPRIL/HCTZ 10/12.5 MG 1 EA TAB PO SCH (10:14)
[2016-04-28] MEDS: predniSONE 20 MG TAB PO SCH (10:14)
[2016-04-28] MEDS: CALCIUM CARBONATE 500 MG TAB PO SCH (10:14)
[2016-04-28] MEDS: FLUTICASONE NASAL 120 SPRAYS/16 GM MDI EACHNARE SCH (10:15)
[2016-04-28] MEDS: ENOXAPARIN 40 MG/0.4 ML SYR SC SCH (10:15)
[2016-04-28] MEDS: FLUTICASONE/SALMETER 250/50MCG DISKUS IH SCH ×2 (10:16→21:29)
[2016-04-28] MEDS: OSELTAMIVIR PHOSPHATE 75 MG CAP PO SCH ×2 (10:42→17:58)
--- NOTE | 2016-04-28 13:55 | HOSPPROG ---
Hospitalist Progress Note Assessment/Plan: * Influenza A - Tamiflu * COPD exacerbation -steroids, nebs * Acute respiratory failure -previous 15L, now 3L -still severe wheeze and respiratory difficulty * Pneumonia -Levaquin * DM II - uncontrolled due to steroids -increased Lantus 12 units * CAD -plavix Subjective: Breathing a little better daily. Working to cough up secretions. Objective: Vital Signs Temp Pulse Resp BP Pulse Ox 36.6 C 66 18 118/53 L 92 04/28/16 11:45 04/28/16 11:45 04/28/16 11:45 04/28/16 11:45 04/28/16 11:45 Laboratory Results 04/27/16 04:17 04/27/16 04:17 04/27/16 04/28/16 04/29/16 05:59 05:59 05:59 Intake Total 900 250 Output Total 450 Balance 900 -200 PT 14.1 SEC (12.0-15.0) 04/24/16 13:35 INR 1.10 (0.83-1.16) 04/24/16 13:35 - Physical Exam Cardiovascular: regular rate and rhythym, no murmur, rub, or gallop Respiratory: expiratory wheeze, inspiratory crackles, respiratory distress, rhonchi, No clear to auscultation Gastrointestinal: normoactive bowel sounds, soft, non-tender abdomen, no palpable masses Genitourinary: no bladder fullness, no bladder tenderness, no renal bruits Skin: no rashes or abrasions, no fluctuance, no induration Neurologic: AAOx3, sensation intact bilaterally Psychiatric: interacting appropriately, not anxious, not encephalopathic, thought process linear ICD10 Worksheet Patient Problems: Problems Problem Status Diagnosed Bronchitis Acute Chronic Disease [facility]/Transitional Care Acute Hypoxia Acute Influenza Acute Pneumonia Acute
[2016-04-28] MEDS: traMADol 50 MG TAB PO SCH ×2 (17:58→20:58)
[2016-04-28 18:19] LABS: GLUCOSE 446 mg/dL (70-100)
[2016-04-28] MEDS: GABAPENTIN 300 MG CAP PO SCH (20:58)
[2016-04-28] MEDS: INSULIN GLARGINE 100 UNITS/ML SYRINGE SC SCH (20:59)
[2016-04-28] MEDS ORDERED: INSULIN LISPRO 100 UNIT/ML SC ONE (21:00)
[2016-04-29] MEDS: IPRATROPIUM/ALBUTEROL 3 ML DEYVIAL IH SCH ×2 (06:03→10:15)
[2016-04-29] MEDS: INSULIN LISPRO 100 UNIT/ML SC SCH ×4 (09:11→11:45)
[2016-04-29] MEDS: FLUTICASONE/SALMETER 250/50MCG DISKUS IH SCH (09:12)
[2016-04-29] MEDS: guaiFENesin 600 MG TAB.ER PO SCH (09:12)
[2016-04-29] MEDS: FLUTICASONE NASAL 120 SPRAYS/16 GM MDI EACHNARE SCH (09:13)
[2016-04-29] MEDS: OMEGA-3 FATTY ACIDS 1,000 MG CAP PO SCH (09:14)
[2016-04-29] MEDS: CLOPIDOGREL BISULFATE 75 MG TAB PO SCH (09:15)
[2016-04-29] MEDS: ATORVASTATIN CALCIUM 10 MG TAB PO SCH (09:15)
[2016-04-29] MEDS: predniSONE 20 MG TAB PO SCH (09:15)
[2016-04-29] MEDS: ASCORBIC ACID 500 MG TAB PO SCH (09:15)
[2016-04-29] MEDS: CALCIUM CARBONATE 500 MG TAB PO SCH (09:15)
[2016-04-29] MEDS: CETIRIZINE 10 MG TAB PO SCH (09:16)
[2016-04-29] MEDS: OSELTAMIVIR PHOSPHATE 75 MG CAP PO SCH (09:16)
[2016-04-29] MEDS: LISINOPRIL/HCTZ 10/12.5 MG 1 EA TAB PO SCH (09:16)
[2016-04-29] MEDS: CHOLECALCIFEROL VIT D3 1,000 UNITS TAB PO SCH (09:16)
[2016-04-29] MEDS: ENOXAPARIN 40 MG/0.4 ML SYR SC SCH (09:16)
--- NOTE | 2016-04-29 10:35 | PDIAF ---
- Diagnosis Diagnosis: influenza with COPD exacerbation Code Status: Do Not Resuscitate - Medication Management Discharge Medications: Medications to Continue on Transfer Atorvastatin Calcium [Lipitor 10 mg (*)] 10 mg PO DAILY 08/19/14 [Last Taken ] Fluticasone/Salmeter 250/50Mcg [Advair 250/50 (*)] 1 puffs IH BID 08/19/14 [ Last Taken 04/23/16] Insulin Lispro [humALOG LISPRO 100 units/ml (*)] 4 unit SC TIDMEAL 08/19/14 [ Last Taken 04/23/16] Calcium Carbonate [Oyster Shell Calcium 500 mg (*)] 500 mg PO DAILY 05/29/15 [ Last Taken 04/23/16] Cholecalciferol Vit D3 [Vitamin D3 (*)] 1,000 units PO BID 05/29/15 [Last Taken 04/23/16] Clopidogrel Bisulfate [Plavix (*)] 75 mg PO DAILY 05/29/15 [Last Taken 04/23/16] Fluticasone Nasal [Flonase Nasal [place]] 2 spray NASAL DAILY 05/29/15 [Last Taken 04/23/16] Gabapentin [Neurontin 300 MG (*)] 300 mg PO HS 05/29/15 [Last Taken 04/23/16] Lisinopril/Hctz 10/12.5 mg [Zestoretic/Prinzide 10/12.5MG (*)] 1 ea PO DAILY 05/13 [Last Taken 04/23/16] [place]-3 Fatty Acids [Fish Oil 1000 mg (*)] 1,000 mg PO DAILY 05/29/15 [Last Taken 04/23/16] Acetaminophen [Tylenol ES 500 mg (*)] 500 mg PO DAILY PRN 04/24/16 [Last Taken 04/23/16 1000mg] Albuterol Hfa Anes Only [Proair Hfa Icu (*)] 2 puffs IH QID 04/24/16 [Last Taken Unknown] Ascorbic Acid [Vitamin C 250 mg (*)] 500 mg PO DAILY 04/24/16 [Last Taken ] Fexofenadine HCl [Deja Allergy] 180 mg PO DAILY 04/24/16 [Last Taken 04/23/16 ] predniSONE 5 mg PO Q48H 04/24/16 [Last Taken Unknown] traMADol [Ultram 50 mg (*)] 50 mg PO DAILY@17,04/24/16 [Last Taken Unknown] Insulin Glargine [Lantus 100 UNITS/ML (*)] 12 units SC HS #0 ml 04/29/16 [Last Taken Unknown] Tiotropium Inhaler [Spiriva Handihaler] 18 mcg IH DAILY #0 mdi 04/29/16 [Last Taken Unknown] guaiFENesin [Mucinex 600 MG (*)] 1,200 mg PO BID #0 tab.er 04/29/16 [Last Taken Unknown] predniSONE 40 mg PO DAILY #0 tablet 04/29/16 [Last Taken Unknown] Discharge Medications: Refer to the Discharge Home Medication list for PRN reason. - Orders Services needed: Physical Therapy, Occupational Therapy Additional: Continue prednisone at 40mg daily for 3 more days, then reduce back to chronic prednisone dose 5mg every other day. Lantus insulin increased from home doses due to hyperglycemia from steroids. Watch glucose closely when steroid dose is reduced, rule out hypoglycemia - Follow Up Care Current Providers and Referrals: Patient,NotPresent [Unknown] - As per Instructions
[2016-04-29 11:35] VITALS: BP 135/75; PULSE 61; RESP 18; TEMP 97.6; O2SAT 98
--- NOTE | 2016-04-29 17:13 | GDS ---
[f rep st] DISCHARGE SUMMARY DISCHARGE DIAGNOSES: 1. Influenza A. 2. Chronic obstructive pulmonary disease exacerbation. 3. Acute respiratory failure. 4. Pneumonia. 5. Diabetes type 2, uncontrolled due to steroids. 6. Coronary artery disease. HISTORY: The patient is an 80-year-old female with baseline COPD. She developed influenza A, and se natalie COPD exacerbation. At one point she was requiring 15 L of oxygen, but we did avoid intubation. She was treated with Tamiflu and antibiotics. There was suspicion for superimposed pneumonia, which was treated with Levaquin. She was treated with steroids and nebulizers, and did have gradual impro vement in respiratory status, now down to 3 L and fairly comfortable, with minimal wheezing on exam o n the day of discharge. Her diabetes became uncontrolled due to her steroids. We did increase her Lantus slightly, and that will need to be monitored as she comes off the steroids in the next couple of days. During this hospitalization she did complete a full 5-day course of Tamiflu, and a full course of Lev aquin, and no further antivirals or antibiotics are required at hospital discharge. DISCHARGE MEDICATIONS: 1. Lantus insulin increased to 12 units subcu at bedtime. 2. Guaifenesin 1200 mg p.o. twice daily. 3. Spiriva 1 puff daily. 4. Prednisone 40 mg p.o. daily. ADDITIONAL DISCHARGE INSTRUCTIONS: 1. Continue prednisone at 40 mg p.o. daily for 3 more days, and then go back to her chronic predniso ne dose which is 5 mg every other day. 2. Lantus insulin has been increased from her home dosage due to hyperglycemia from her steroids. H er hemoglobin A1c is 8.8, so she may be able to tolerate this insulin dose long-term; however, would watch her closely when she stops her burst high-dose prednisone to make sure she does not become hypo glycemic. 3. Transfer to [facility] facility for PT, OT, and rehabilitation. Greater than 30 minutes time was spent arranging discharge. Patient seen and examined by me on the d ay of discharge. /[id number]/MODL
[2016-04-29] MEDS ORDERED: FLUTICASONE/SALMETER 250/50MCG DISKUS IH SCH (21:00)
== END 2016-04-29 15:42 | DRG 193 ==
LOC: EDUNIT# → F3E 16:56
PROVIDERS: ADMIT Internal Medicine; ATTEND Internal Medicine
DX: J10.00 Influenza due to other identified influenza virus with unspecified type of pneumonia (principal); J96.00 Acute respiratory failure, unspecified whether with hypoxia or hypercapnia; J44.1 Chronic obstructive pulmonary disease with (acute) exacerbation; E11.65 Type 2 diabetes mellitus with hyperglycemia; I25.10 Atherosclerotic heart disease of native coronary artery without angina pectoris; T38.0X5A Adverse effect of glucocorticoids and synthetic analogues, initial encounter; I10 Essential (primary) hypertension; Z87.891 Personal history of nicotine dependence; Z88.0 Allergy status to penicillin; Z66 Do not resuscitate
CPT/HCPCS: 82947-QW; 96365; 97001-GP; 97003-GO; 97110-GP; 97116-GP; 97530-GO; 97535-GO; G8978-GP-CK; G8978-GP-CL; G8979-GP-CI; G8979-GP-CJ; G8987-GO-CJ; G8988-GO-CI; J1650; J1815; J1956

== ENCOUNTER → 2016-06-05 | Outpatient (CLI) | payer OTHER, MEDICARE ==
--- NOTE | 2016-06-05 16:54 | DX ---
Chest, PA and Lateral, 248 p.m. History: Reactive cough, congestion, increased O2 needs, on long-term prednisone Comparison: April 25, 2016, April 24, 2016 Findings: There is new rounded consolidation in the right upper lobe possibly with cavitation. Right lower lung zone atelectasis with possible pleural fluid is not significantly changed since March 29 but new since April 24. Left lower lobe atelectasis with possible small left effusion is new sin ce April 25. . A prominent upper thoracic kyphosis is stable. Impression: 1. New right upper lobe segmental pneumonia, possibly cavitary. 2. New bilateral lower lobe atelectasis, with possible effusions. Please see above. Results called to Dr. Hebert at 452 p.m.
== END ==
LOC: BMCIMAGING 14:50
PROVIDERS: ATTEND Internal Medicine
DX: J44.9 Chronic obstructive pulmonary disease, unspecified (principal); J18.8 Other pneumonia, unspecified organism; J98.11 Atelectasis

== ENCOUNTER → 2016-06-10 | Outpatient (CLI) | payer OTHER, MEDICARE ==
[~2016-06-10] MED LIST: IOPAMIDOL (ISOVUE-300) 100 ML BTL IV ONE
--- NOTE | 2016-06-10 18:00 | CT ---
"CT Chest With Contrast 1523 hours Indication: Follow-up pneumonia. Technique: Spiral images were obtained through the chest with the uneventful intravenous administr ation of 80 mL of Isovue-300. Images were reconstructed and reviewed in multiple planes. Dose reduc tion techniques were utilized. Comparison: Recent chest x-ray study from 06/05/[address] study from 06/01/2015. Findings: Lung and large airways: There has been interval development of a thick walled cavitary air-filled cys tic mass centered around series 4 image 67 in the right upper lobe posterolaterally measuring 3.9 x 3 .5 cm. This was not identified on prior CT study from one year ago or on prior chest x-ray study from March,. Along the margins of this thick-walled mass are ill-defined areas of groundglass inc reased parenchymal density and thickening of the adjacent intralobular septa. There is similar thicke [place] of interlobular septa and some groundglass attenuation within additional areas of the right uppe r lobe and right middle lobe the right middle lobe. The major and minor fissure are not delineated on the right on today's study. There is increase in atelectasis involving the right lower lobe and this progressed since the prior study but now appears to involve what is probably the majority of the rig ht lower lobe. There is stable atelectasis of a moderate portion of the left lower lobe as well. Ther e are also some new areas of groundglass attenuation and reticular nodular densities in the left lung base and left perihilar region that probably involves the lingula. Bronchi: No significant bronchial wall thickening Pleura: Normal. Vessels: The thoracic aorta has a normal contour. There is no aneurysm or dissection. Heart and pericardium: Normal. Mediastinum and robles: No mass or lymphadenopathy. Chest wall and lower neck: Normal. Limited upper abdomen: No significant abnormality. Skeletal system: There is mild anterior wedging of T7 segment with anterior Schmorl's nodes present. The remainder of the vertebral body heights are well-maintained. There are no lytic or sclerotic osse ous lesions. There is moderate levoscoliosis upper thoracic spine with dextroscoliosis thoracolumbar junction. Impression: 1. Interval development of thick walled cavitary mass right upper lobe posterior laterally. There is surrounding thickening of the parenchyma of the right upper lobe. There are also some scattered areas of groundglass attenuation and thickening of the interlobular septa involving the right upper lobe a nd portions of the lingula at the left base. The dominant mass in the right upper lobe is nonspecific but could be related to infectious etiology considering this was not present on prior CT study from one year ago as well as recent chest x-ray exam. Consider bacterial, fungal, or mycobacterial pneumon ia. Lung carcinoma or metastatic disease cannot be completely excluded however. 2. Increase in atelectasis involving the majority of the right lower lobe and portion of the right mi ddle lobe of the prior study. 3. Stable to slight increase in dense atelectasis involving the left lower lobe. 4. Scoliosis A Follow-Up Required test result has been communicated via the [employer] | Critical Result syst em on 06/10/2016 17:59, Message ID [id number]."
== END ==
LOC: FIMAGING 14:31
PROVIDERS: ATTEND Internal Medicine
DX: R91.8 Other nonspecific abnormal finding of lung field (principal); J98.4 Other disorders of lung; J98.11 Atelectasis; M41.84 Other forms of scoliosis, thoracic region; M51.44 Schmorl's nodes, thoracic region
CPT/HCPCS: Q9967

== ENCOUNTER → 2016-06-19 | Outpatient (CLI) | payer OTHER, MEDICARE | LOC: BMCIMAGING 13:01 | PROVIDERS: ATTEND Internal Medicine Pulmonary Disease | DX: R91.8 Other nonspecific abnormal finding of lung field (principal); J98.11 Atelectasis ==

== ENCOUNTER 2016-06-21 10:54 | Day surgery (SDC) | payer OTHER, MEDICARE ==
[2016-06-21] MEDS ORDERED: ALBUTEROL 3 ML DEYVIAL ONE (12:06)
[2016-06-21] MEDS ORDERED: MIDAZOLAM 2 MG/2 ML VIAL ONE (12:25)
[2016-06-21] MEDS ORDERED: fentaNYL 100 MCG/2 ML INJ ONE (12:25)
[2016-06-21] MEDS ORDERED: LIDOCAINE 1% 30 ML SDV ONE (12:26)
--- NOTE | 2016-06-21 14:40 | GPN ---
DATE OF PROCEDURE: 06/21/2016 PROCEDURE: Bronchoscopy with biopsies. REASON FOR PROCEDURE: New cavitary right upper lobe lesion, suspect infection as the lesion was not there on chest x-ray within the last month and a half. The patient has an underlying history of [place] PD. PROCEDURE NOTE: The procedure was done in the endoscopy unit in a negative pressure room. Appropri ate time-out was performed. Informed consent was obtained from the patient. N95 masks were worn. 3 mg of Versed and 75 mcg of fentanyl were used for conscious sedation. A small amount of Hurricain e spray and approximately 20 mL of 1% lidocaine was used for topical anesthesia. The bronchoscope was passed via bite block orally into the larynx. Laryngeal structures were normal and moved normally with cough. The bronchoscope was then advanced into the trachea and in the lowe r tracheobronchial tree bilaterally. There was a moderate amount of yellowish creamy secretions fou nd on both sides. There was no evidence of any endobronchial lesion or extrinsic compression. Ther e was no bleeding. Samples were taken from the right upper lobe. Bronchoalveolar lavage/bronch was hings were performed from this area. A sterile brush biopsy sample was taken from the right upper l obe and sent for routine cultures. Transbronchial biopsies were obtained from the patient's lesion under fluoroscopic guidance. There was minimal bleeding. Samples were placed in formalin and sent for pathologic analysis and special stains. The bronch wash sample was sent for cytology and cultur es, including aerobic cultures, AFB, and fungal cultures. The patient tolerated the procedure well. Vital signs and oxygen saturations on supplemental oxygen remained normal throughout the procedure. IMPRESSION: 1. Normal endobronchial anatomy. 2. Moderate secretions, which could be consistent with a lung abscess or with the patient's underly ing chronic obstructive pulmonary disease and chronic bronchitis. 3. Right upper lobe cavitary lesion, query etiology. A low-grade anaerobic infection is suspected; however, other etiologies are possible. The above findings were discussed with the patient at the end of the procedure. Her son could not b e found at that time. She will be started on clindamycin 300 mg t.i.d. for the next 3-5 days with a djustments in antibiotics based on possible side effects and the results of the cultures as they com e back. /[id number]/MODL
== END 2016-06-21 15:41 | disposition home or self-care (01) ==
LOC: FSGY 10:54
PROVIDERS: ATTEND Internal Medicine Pulmonary Disease
PROC: 0BJ08ZZ Inspection of Tracheobronchial Tree, Via Natural or Artificial Opening Endoscopic (ICD-10-PCS; principal; 2016-06-21 12:15)
PROC: 0BBC8ZX Excision of Right Upper Lung Lobe, Via Natural or Artificial Opening Endoscopic, Diagnostic (ICD-10-PCS; principal; 2016-06-21 12:15)
PROC: 0B948ZX Drainage of Right Upper Lobe Bronchus, Via Natural or Artificial Opening Endoscopic, Diagnostic (ICD-10-PCS; principal; 2016-06-21 12:15)
DX: R91.8 Other nonspecific abnormal finding of lung field (principal); J44.9 Chronic obstructive pulmonary disease, unspecified; R09.02 Hypoxemia; I10 Essential (primary) hypertension; E78.5 Hyperlipidemia, unspecified
CPT/HCPCS: J0171; J2250; J3010

== ENCOUNTER → 2016-07-02 | Outpatient (CLI) | payer OTHER, MEDICARE | LOC: BMCIMAGING 13:37 | PROVIDERS: ATTEND Internal Medicine Pulmonary Disease | DX: J18.9 Pneumonia, unspecified organism (principal) ==

== ENCOUNTER → 2016-08-12 | Outpatient (CLI) | payer OTHER, MEDICARE | LOC: FIMAGING 10:16 | PROVIDERS: ATTEND Internal Medicine Pulmonary Disease | DX: J98.19 Other pulmonary collapse (principal); J42 Unspecified chronic bronchitis; R91.1 Solitary pulmonary nodule ==

== ENCOUNTER → 2016-11-19 | Outpatient (CLI) | payer OTHER, MEDICARE | LOC: BMCIMAGING 14:26 | PROVIDERS: ATTEND Internal Medicine Endocrinology, Diabetes & Metabolism | DX: Z13.820 Encounter for screening for osteoporosis (principal); M81.0 Age-related osteoporosis without current pathological fracture ==

== ENCOUNTER → 2017-01-14 | Outpatient (CLI) | payer OTHER, MEDICARE | LOC: BMCIMAGING 12:20 | PROVIDERS: ATTEND Emergency Medicine | DX: S62.001A Unspecified fracture of navicular [scaphoid] bone of right wrist, initial encounter for closed fracture (principal); M15.4 Erosive (osteo)arthritis; J01.01 Acute recurrent maxillary sinusitis ==

== ENCOUNTER → 2017-01-21 | Outpatient (CLI) | payer OTHER, MEDICARE | LOC: BMCIMAGING 14:17 | PROVIDERS: ATTEND Orthopaedic Surgery Hand Surgery | DX: S62.001D Unspecified fracture of navicular [scaphoid] bone of right wrist, subsequent encounter for fracture with routine healing (principal); M85.841 Other specified disorders of bone density and structure, right hand ==

== ENCOUNTER → 2017-02-18 | Outpatient (CLI) | payer OTHER, MEDICARE | LOC: BMCIMAGING 14:10 | PROVIDERS: ATTEND Orthopaedic Surgery Hand Surgery | DX: S62.001A Unspecified fracture of navicular [scaphoid] bone of right wrist, initial encounter for closed fracture (principal) ==

== ENCOUNTER → 2017-03-25 | Outpatient (CLI) | payer OTHER, MEDICARE | LOC: BMCIMAGING 13:05 | PROVIDERS: ATTEND Orthopaedic Surgery Hand Surgery | DX: S62.001D Unspecified fracture of navicular [scaphoid] bone of right wrist, subsequent encounter for fracture with routine healing (principal) ==